=== PATIENT | female | born 1985 | race Caucasian/White ===

== ENCOUNTER 2023-09-13 19:00 | Inpatient (IN) | payer OTHER ==
[2023-09-13] MEDS ORDERED: DEXTROSE 5%-LACTATED RINGERS 1,000 ML IV SCH (19:45)
[2023-09-13 20:25] VITALS: BMI 29.0
[2023-09-13 20:44] LABS: BASO % 0.7 % (0-2.0); EOS % 0.6 % (0-4.5); HEMATOCRIT 32.4 % (32.4-45.2); HEMOGLOBIN 11.3 GM/dL (10.7-15.3); LYMPH % 13.6 % (8-40); MEAN CELL VOLUME 82.8 fl (80-96); MEAN PLT VOLUME 8.6 fl (7.5-11.1); MONO % 4.9 % (3.8-10.2); NEUT % 80.2 % (42.8-82.8); PLATELET COUNT 200 10^3/uL (134-434); RBC 3.91 M/mm3 (3.60-5.2); RDW 15.5 % (11.6-15.6); WHITE BLOOD COUNT 11.8 K/mm3 (4.0-10.0)
[2023-09-13 20:51] LABS: POTASSIUM 3.8 mmol/L (3.5-5.1)
[2023-09-13 20:54] LABS: CALCIUM 8.6 mg/dL (8.5-10.1)
[2023-09-13 20:55] LABS: ALBUMIN 2.6 g/dl (3.4-5.0)
[2023-09-13 20:58] LABS: CREATININE 0.5 mg/dL (0.55-1.3)
[2023-09-13 20:59] LABS: BILIRUBIN,TOTAL 0.2 mg/dL (0.2-1)
[2023-09-13 21:01] LABS: TOT PROT 6.3 g/dl (6.4-8.2)
[2023-09-13 21:07] LABS: INR 0.97 (0.83-1.09); PROTHROMBIN TIME (PATIENT) 11.2 SEC (9.7-13.0)
[2023-09-13 21:10] LABS: ACTIVATED PTT 24.5 SECONDS (25.2-36.5)
[2023-09-13] MEDS ORDERED: OXYTOCIN 30 UNITS in 0.9% NS 30 UNIT/500 ML INFUS.BAG IVPB SCH (21:30)
[2023-09-14] MEDS ORDERED: morphine CARPU-JECT 8 MG/1 ML DISP.SYRIN IVPB ONE (00:18)
[2023-09-14] MEDS ORDERED: morphine SULFATE 4 MG/ML VIAL ONE (00:32)
[2023-09-14] MEDS ORDERED: LIDOCAINE HCL 1% PRESERVATIVE FREE - 30ML VIAL ONE (02:36)
[2023-09-14] MEDS ORDERED: OXYTOCIN 20 UNITS in 0.9% NS 20 UNIT/1,000 ML INFUS.BAG IV ONE (02:37)
[2023-09-14 04:19] LABS: CORD BASE EXCESS -5.6 mmol/L (0-2); CORD HCO3 20.2 mmHg (20-29); CORD HCO3 22.9 mmHg (20-29); CORD PCO2 40.5 mmHg (30-78); CORD PCO2 59.4 mmHg (30-78); CORD pH 7.204 (7.14-7.44); CORD pH 7.315 (7.14-7.44)
[2023-09-14] MEDS ORDERED: IBUPROFEN 600 MG TABLET (FP) PO PRN (04:39)
[2023-09-14] MEDS ORDERED: WITCH HAZEL 50% (TUCKS) 40 PAD/JAR PAD TP PRN (04:39)
[2023-09-14] MEDS ORDERED: BENZOCAINE 28 GM HEMORRHOIDAL OINTMENT TP PRN (04:39)
[2023-09-14] MEDS ORDERED: ACETAMINOPHEN 325 MG TABLET (FP) PO PRN (04:39)
[2023-09-14] MEDS ORDERED: OXYTOCIN 20 UNITS in 0.9% NS 20 UNIT/1,000 ML INFUS.BAG IV SCH (04:45)
[2023-09-14] MEDS: PRENATAL VITAMINS W/ FOLIC ACID TABLET (FP) PO SCH (11:01)
[2023-09-15 08:54] LABS: BASO % 0.6 % (0-2.0); HEMATOCRIT 27.6 % (32.4-45.2); HEMOGLOBIN 9.4 GM/dL (10.7-15.3); MCH 29.1 pg (25.7-33.7); MCHC 34.2 g/dl (32.0-36.0); MEAN PLT VOLUME 8.3 fl (7.5-11.1); MONO % 5.1 % (3.8-10.2); NEUT % 70.3 % (42.8-82.8); PLATELET COUNT 164 10^3/uL (134-434); RBC 3.25 M/mm3 (3.60-5.2); RDW 15.7 % (11.6-15.6)
[2023-09-15] MEDS: PRENATAL VITAMINS W/ FOLIC ACID TABLET (FP) PO SCH (09:33)
[2023-09-15] MEDS ORDERED: FLU VACCINE (FLULAVAL) PF 60 MCG/0.5 ML SYRINGE 2023-2024 IM ONE (10:00)
[2023-09-15] MEDS ORDERED: DOCUSATE SODIUM 100 MG CAPSULE (FP) PO PRN (17:41)
[2023-09-15] MEDS: FERROUS SO4 325 MG TABLET (FP) PO SCH (21:23)
[2023-09-15 22:36] VITALS: PULSE 82
[2023-09-16 10:40] VITALS: BP 101/79; RESP 17; TEMP 97.9
[2023-09-16] MEDS: FERROUS SO4 325 MG TABLET (FP) PO SCH (10:53)
[2023-09-16] MEDS: PRENATAL VITAMINS W/ FOLIC ACID TABLET (FP) PO SCH (10:53)
== END 2023-09-16 12:35 | disposition home or self-care (01) | DRG 560 ==
LOC: UNDOADMIN 19:00 → JLDR 19:00 → J3W 09-14 06:00
PROVIDERS: ADMIT Obstetrics & Gynecology Maternal & Fetal Medicine; ATTEND Obstetrics & Gynecology Maternal & Fetal Medicine
PROC: 10E0XZZ Delivery of Products of Conception, External Approach (ICD-10-PCS; principal; 2023-09-14)
PROC: 0HQ9XZZ Repair Perineum Skin, External Approach (ICD-10-PCS; 2023-09-14)
DX: O70.0 First degree perineal laceration during delivery (principal); Z3A.39 39 weeks gestation of pregnancy; Z37.0 Single live birth
CPT/HCPCS: 36415; 36600; 80053; 82803; 85025; 85610; 85730; 86780; 86850; 86900; 86901; 90686; G0008